=== PATIENT | female | born 1990 | race African-American/Black ===

== ENCOUNTER 2018-06-20 05:17 | Emergency (ER) | payer SELFPAY ==
[~2018-06-20] VITALS: Ht 167.6 cm; Wt 85.7 kg
[~2018-06-20 05:17] MED LIST: PREN-96 PO
[2018-06-20 06:41] LABS: Basophils # (auto) 0.1 uL; Basophils % (auto) 0.9 % (0.0-2.0); Eosinophils # (auto) 0.2 uL; Eosinophils % (auto) 2.3 % (0.0-7.0); Hematocrit 37.8 % (36.0-46.0); Hemoglobin 12.5 g/dL (12.2-16.2); Lymphocytes # (auto) 2.9 uL; Lymphocytes % (auto) 29.6 % (10.0-50.0); Mean Corpuscular Hemoglobin 27.9 pg (28.0-32.0); Mean Corpuscular Hgb Conc. 33.1 g/dL (32.0-36.0); Mean Corpuscular Volume 84.4 fL (80.0-100.0); Monocytes # (auto) 0.9 uL; Monocytes % (auto) 9.3 % (0.0-12.0); Neutrophils # (auto) 5.6 uL; Neutrophils % (auto) 57.9 % (37.0-80.0); Platelet Count (auto) 320 10^3/uL (140-450); Red Blood Cells 4.48 10^6/uL (4.0-5.20); White Blood Cell 9.7 10^3/uL (4.4-10.8)
[2018-06-20] MEDS ORDERED: ASPirin 81 mg TAB PO ONE (06:45)
[2018-06-20] MEDS ORDERED: LORazepam 0.5 MG TAB PO ONE (06:45)
[2018-06-20 06:51] LABS: Alanine Aminotransferase 20 U/L (13-56); Albumin 3.4 g/dL (3.4-5.0); Anion Gap 6 (5-15); Aspartate Aminotransferase 13 U/L (15-37); Blood Urea Nitrogen 13 mg/dL (7-18); Calcium 8.7 mg/dL (8.5-10.1); Carbon Dioxide 25 mmol/L (21-32); Chloride 102 mmol/L (98-107); Glucose 97 mg/dL (74-106); Magnesium 2.4 mg/dL (1.6-2.6); Potassium 3.8 mmol/L (3.5-5.1); Sodium 133 mmol/L (136-145)
[2018-06-20 06:56] LABS: Alkaline Phosphatase 69 U/L (45-117); BUN/Creatinine Ratio 17.6; Bilirubin, Total 0.2 mg/dL (0.2-1.0); GFR African American 122 mL/min; GFR Non-African American 101 mL/min; Total Protein 7.6 g/dL (6.4-8.2)
[2018-06-20 07:34] VITALS: BP 112/74
== END 2018-06-20 07:49 | disposition home or self-care (01) ==
LOC: ER 05:17
DX: R07.89 Other chest pain (principal); F41.9 Anxiety disorder, unspecified; Z88.0 Allergy status to penicillin
CPT/HCPCS: 36415; 80053; 83735; 84443; 84484; 85025; 93005

== ENCOUNTER 2021-05-27 20:37 | Emergency (ER) | payer MEDICAID, OTHER ==
[~2021-05-27] VITALS: Ht 165.1 cm; Wt 82.6 kg
[2021-05-27 21:52] LABS: Basophils # (auto) 0.1 10 ^3/uL (0-0.2); Eosinophils # (auto) 0.1 10 ^3/uL (0-0.8); Hemoglobin 11.9 g/dL (12.2-16.2); Mean Corpuscular Volume 80.3 fL (80.0-100.0); Monocytes # (auto) 0.7 10 ^3/uL (0-1.3)
[2021-05-27 21:54] LABS: Basophils % (auto) 0.7 % (0.0-2.0); Eosinophils % (auto) 0.8 % (0.0-7.0); Hematocrit 36.8 % (36.0-46.0); Lymphocytes # (auto) 2.5 10 ^3/uL (0.4-5.4); Lymphocytes % (auto) 23.6 % (10.0-50.0); Mean Corpuscular Hemoglobin 25.9 pg (28.0-32.0); Mean Corpuscular Hgb Conc. 32.3 g/dL (32.0-36.0); Monocytes % (auto) 6.7 % (0.0-12.0); Neutrophils # (auto) 7.2 10 ^3/uL (1.6-8.6); Neutrophils % (auto) 68.2 % (37.0-80.0); Red Blood Cells 4.58 10^6/uL (4.0-5.20); Red Cell Distribution Width 18.6 % (11.8-14.3); White Blood Cell 10.5 10^3/uL (4.4-10.8)
[2021-05-27 21:55] LABS: Urine Bacteria MANY /hpf (None Seen); Urine Blood Negative /uL (Negative); Urine Mucus FEW (None Seen); Urine Specific Gravity 1.028 (1.001-1.035); Urine WBC 13 /hpf (0 - 5)
[2021-05-28 01:54] VITALS: BP 101/53
== END 2021-05-28 01:57 | disposition home or self-care (01) ==
LOC: ER 20:39
DX: O20.0 Threatened abortion (principal); O99.511 Diseases of the respiratory system complicating pregnancy, first trimester; J45.909 Unspecified asthma, uncomplicated; Z79.899 Other long term (current) drug therapy; Z88.0 Allergy status to penicillin; Z3A.01 Less than 8 weeks gestation of pregnancy
CPT/HCPCS: 36415; 76801; 81001; 84702; 85025

== ENCOUNTER → 2021-12-09 | Outpatient (CLI) | payer MEDICAID ==
[2021-12-09 12:09] LABS: Basophils # (auto) 0 10 ^3/uL (0-0.2); Basophils % (auto) 0.4 % (0.0-2.0); Eosinophils # (auto) 0.1 10 ^3/uL (0-0.8); Eosinophils % (auto) 0.7 % (0.0-7.0); Hematocrit 37.1 % (36.0-46.0); Hemoglobin 12.4 g/dL (12.2-16.2); Lymphocytes # (auto) 1.5 10 ^3/uL (0.4-5.4); Lymphocytes % (auto) 19.1 % (10.0-50.0); Mean Corpuscular Hemoglobin 28.2 pg (28.0-32.0); Mean Corpuscular Hgb Conc. 33.5 g/dL (32.0-36.0); Mean Corpuscular Volume 84.2 fL (80.0-100.0); Monocytes # (auto) 0.4 10 ^3/uL (0-1.3); Monocytes % (auto) 5.7 % (0.0-12.0); Neutrophils # (auto) 5.6 10 ^3/uL (1.6-8.6); Neutrophils % (auto) 74.1 % (37.0-80.0); Red Cell Distribution Width 14.4 % (11.8-14.3); White Blood Cell 7.6 10^3/uL (4.4-10.8)
[2021-12-10 07:07] LABS: RPR Non Reactive (Non Reactive)
== END | disposition home or self-care (01) ==
LOC: LAB 10:57
PROVIDERS: ATTEND Obstetrics & Gynecology
DX: Z34.80 Encounter for supervision of other normal pregnancy, unspecified trimester (principal)
CPT/HCPCS: 36415; 84112; 85025; 86592

== ENCOUNTER 2021-12-10 11:30 | Observation (INO) | payer MEDICAID | END 2021-12-10 13:31 | disposition home or self-care (01) | LOC: LDRP 11:30 | PROVIDERS: ADMIT Obstetrics & Gynecology; ATTEND Obstetrics & Gynecology | DX: O42.913 Preterm premature rupture of membranes, unspecified as to length of time between rupture and onset of labor, third trimester (principal); O26.893 Other specified pregnancy related conditions, third trimester; N89.8 Other specified noninflammatory disorders of vagina; R51.9 Headache, unspecified; Z3A.35 35 weeks gestation of pregnancy | CPT/HCPCS: 59025; 81002; 84112; G0378; Q0114 ==

== ENCOUNTER 2021-12-26 17:36 | Observation (INO) | payer MEDICAID ==
[~2021-12-26] VITALS: Ht 165.1 cm; Wt 94.3 kg
== END 2021-12-26 19:45 | disposition home or self-care (01) ==
LOC: LDRP 17:36
PROVIDERS: ADMIT Obstetrics & Gynecology; ATTEND Obstetrics & Gynecology
DX: O36.8130 Decreased fetal movements, third trimester, not applicable or unspecified (principal); Z3A.38 38 weeks gestation of pregnancy; Z88.0 Allergy status to penicillin
CPT/HCPCS: 59025; 76818; 81002; 84112; G0378; Q0114

== ENCOUNTER 2022-01-09 08:58 | Observation (INO) | payer MEDICAID | END 2022-01-09 17:12 | disposition home or self-care (01) | LOC: LDRP 14:45 | PROVIDERS: ADMIT Obstetrics & Gynecology; ATTEND Obstetrics & Gynecology | DX: O62.9 Abnormality of forces of labor, unspecified (principal); O48.0 Post-term pregnancy; Z3A.40 40 weeks gestation of pregnancy | CPT/HCPCS: 59025; 81002; 94760; G0378 ==

== ENCOUNTER 2022-01-16 07:50 | Inpatient (IN) | payer MEDICAID ==
[~2022-01-16] VITALS: Ht 165.1 cm; Wt 95.7 kg
[2022-01-16] MEDS ORDERED: PROMETHAZINE HCL 25 MG/ML 1ML IV PRN (09:30)
[2022-01-16] MEDS ORDERED: DERMOPLAST 60ML BOTTLE TOP PRN (09:30)
[2022-01-16] MEDS ORDERED: PHISODERM TOP SOLN 240ML BTL TOP PRN (09:30)
[2022-01-16] MEDS ORDERED: WITCH HAZEL-GLYCERIN PAD TOP PRN (09:30)
[2022-01-16] MEDS ORDERED: BUTORPHANOL TARTRATE 2 MG/1 ML VIAL IV PRN ×2 (09:30)
[2022-01-16] MEDS ORDERED: LIDOCAINE 2%HCL (LOCAL ANESTH.) INJ 10ml MDV IJ PRN (09:30)
[2022-01-16 09:59] LABS: Basophils # (auto) 0.1 10 ^3/uL (0-0.2); Basophils % (auto) 0.6 % (0.0-2.0); Eosinophils # (auto) 0 10 ^3/uL (0-0.8); Eosinophils % (auto) 0.5 % (0.0-7.0); Hematocrit 41.8 % (36.0-46.0); Hemoglobin 13.9 g/dL (12.2-16.2); Lymphocytes # (auto) 1.5 10 ^3/uL (0.4-5.4); Lymphocytes % (auto) 17.1 % (10.0-50.0); Mean Corpuscular Hemoglobin 28.1 pg (28.0-32.0); Mean Corpuscular Hgb Conc. 33.4 g/dL (32.0-36.0); Mean Corpuscular Volume 84.3 fL (80.0-100.0); Monocytes # (auto) 0.4 10 ^3/uL (0-1.3); Monocytes % (auto) 4.6 % (0.0-12.0); Neutrophils # (auto) 6.6 10 ^3/uL (1.6-8.6); Neutrophils % (auto) 77.2 % (37.0-80.0); Red Blood Cells 4.96 10^6/uL (4.0-5.20); Red Cell Distribution Width 14.1 % (11.8-14.3); White Blood Cell 8.5 10^3/uL (4.4-10.8)
[2022-01-16 09:59] LABS: Urine Bacteria FEW /hpf (None Seen); Urine Blood TRACE /uL (Negative); Urine Mucus FEW (None Seen); Urine WBC 2 /hpf (0 - 5)
[2022-01-16] MEDS: LACTATED RINGER'S 1,000 ML IV SCH ×2 (10:03→17:57)
[2022-01-16 10:14] LABS: INR 0.94 (0.9-1.15); Partial Thromboplastin Time 27.9 sec (23.6-33.0)
[2022-01-16 10:48] LABS: Albumin 3.1 g/dL (3.4-5.0); Calcium 9.3 mg/dL (8.5-10.1); Potassium 3.9 mmol/L (3.5-5.1)
[2022-01-16] MEDS: miSOPROStol 50 MCG per PRE-CUT 1/2 TAB PO PRN ×2 (10:50→15:08)
[2022-01-16 10:52] LABS: BUN/Creatinine Ratio 11.9; Bilirubin, Total 0.2 mg/dL (0.2-1.0); Total Protein 7.8 g/dL (6.4-8.2)
[2022-01-16 11:02] LABS: Alcohol, Urine < 3.0 mg/dL (0-10); Amphetamine Screen, Urine NEGATIVE (NEGATIVE); Barbiturate Scree,Urine NEGATIVE (NEGATIVE); Benzodiazephine Screen, Urine NEGATIVE (NEGATIVE); Cannabinoid Screen, Urine NEGATIVE (NEGATIVE); Cocaine Screen, Urine NEGATIVE (NEGATIVE); Opiate Scree,Urine NEGATIVE (NEGATIVE); Phencyclidine Screen, Urine NEGATIVE (NEGATIVE)
[2022-01-16] MEDS ORDERED: LACT. RINGERS/OXYTOCIN 20UNITS 500 ML IV ONE ×2 (11:45→12:15)
[2022-01-16] MEDS ORDERED: LACT. RINGERS/OXYTOCIN 20UNITS 1,000 ML IV SCH (21:30)
[2022-01-16] MEDS ORDERED: TERBUTALINE SULFATE 1 MG/ML 1ML VIAL SC PRN (21:45)
[2022-01-17] MEDS ORDERED: ONDANSETRON ODT 4 MG TAB PO PRN (01:15)
[2022-01-17] MEDS: IBUPROFEN 800 MG TAB PO SCH ×3 (02:56→20:10)
[2022-01-17 07:06] LABS: RPR Non Reactive (Non Reactive)
[2022-01-17 07:15] VITALS: BP 109/58
[2022-01-17 10:30] VITALS: BP 108/57
[2022-01-17 14:39] VITALS: BP 119/65
[2022-01-17] MEDS: ACETAMINOPHEN 325 MG TAB PO PRN (16:47)
[2022-01-17 19:00] VITALS: BP 113/61
[2022-01-17] MEDS ORDERED: DOCUSATE SOD 100 MG CAP PO SCH (22:00)
[2022-01-17 22:30] VITALS: BP 121/66
[2022-01-18] MEDS: ACETAMINOPHEN 325 MG TAB PO PRN ×3 (02:03→15:57)
[2022-01-18] MEDS: IBUPROFEN 800 MG TAB PO SCH ×2 (02:52→11:00)
[2022-01-18 02:55] VITALS: BP 101/51
[2022-01-18] MEDS ORDERED: IBUP800T26 PO (05:28)
[2022-01-18] MEDS ORDERED: DOCU100C10 PO (05:28)
[2022-01-18 07:00] VITALS: BP 118/68
[2022-01-18 11:00] VITALS: BP 117/58
[2022-01-18 15:00] VITALS: BP 110/56
== END 2022-01-18 18:51 | disposition home or self-care (01) | DRG 560 ==
LOC: LDRP 09:24 → OBSVTOIN 09:25
PROVIDERS: ADMIT Obstetrics & Gynecology; ATTEND Obstetrics & Gynecology
PROC: 10E0XZZ Delivery of Products of Conception, External Approach (ICD-10-PCS; principal; 2022-01-16)
PROC: 3E0P7VZ Introduction of Hormone into Female Reproductive, Via Natural or Artificial Opening (ICD-10-PCS; 2022-01-17)
PROC: 3E0DXGC Introduction of Other Therapeutic Substance into Mouth and Pharynx, External Approach (ICD-10-PCS; 2022-01-17)
DX: O48.0 Post-term pregnancy (principal); Z37.0 Single live birth; Z20.822 Contact with and (suspected) exposure to COVID-19; Z3A.41 41 weeks gestation of pregnancy; Z88.0 Allergy status to penicillin
CPT/HCPCS: 36415; 59025; 59409; 80053; 80307; 81001; 85025; 85610; 85730; 86592; 86850; 86900; 86901; 94760; 96360; 96361; 96365; 96366; 96374; G0378; J2001; J2590

== ENCOUNTER 2022-02-13 09:20 | Emergency (ER) | payer MEDICAID ==
[~2022-02-13] VITALS: Ht 165.1 cm; Wt 83.9 kg
[~2022-02-13 09:20] MED LIST changes: +DOCU100C10 PO; +IBUP800T26 PO
[2022-02-13 09:53] VITALS: BP 164/72
[2022-02-13] MEDS ORDERED: AZIT500T66 PO (10:21)
[2022-02-13] MEDS ORDERED: PROM1SOL4 PO (10:21)
== END 2022-02-13 10:45 | disposition home or self-care (01) ==
LOC: ER 09:20
DX: J02.9 Acute pharyngitis, unspecified (principal); J06.9 Acute upper respiratory infection, unspecified; J45.909 Unspecified asthma, uncomplicated